=== PATIENT | female | born 1995 | race Caucasian/White ===

== ENCOUNTER 2016-09-28 10:54 | Emergency (ER) | payer BC ==
[2016-09-28 11:20] VITALS: BP 132/76
--- NOTE | 2016-09-28 11:46 | UC ---
Throat Pain/Nasal Chaz HPI - HPI Summary HPI Summary: 20 y/o female presents to the urgent care c/o sore throat and cough for the past 5 days. She states she is now having more pain when she swallows. Pain is 5/10 and with a productive cough producing a green phlegm. Pt has been taking Mucinex to alleviate symptoms of cough. But wants to make sure she doesn' t have strep. Pt denies fever, SOB, chest pain, N/V/D/ GUERRA, or rash. - History of Current Complaint Chief Complaint: UCRespiratory Stated Complaint: THROAT PAIN Time Seen by Provider: 09/28/16 11:45 Hx Obtained From: Patient Hx Last Menstrual Period: 09/14/16 ?: No Onset/Duration: Gradual Onset, Lasting Days, Still Present Severity: Moderate Pain Intensity: 5 Pain Scale Used: 0-10 Numeric Cough: Productive - green pleg Associated Signs & Symptoms: Positive: Dysphagia. Negative: Sinus Discomfort, Nasal Discharge, Fever, Vomiting, Rash - Epiglottits Risk Factors Epiglottis Risk Factors: Negative - Allergies/Home Medications Allergies/Adverse Reactions: Allergies Allergy/AdvReac Type Severity Reaction Status Date / Time No Known Allergies Allergy Verified 09/28/16 11:20 PMH/Surg Hx/FS Hx/Imm Hx Previously Healthy: Yes - Surgical History Surgical History: None Surgery Procedure, Year, and Place: HERNIA REPAIR AGE 8 - Family History Known Family History: Positive: Cardiac Disease - Social History Occupation: Student Lives: With Family Alcohol Use: Rare Substance Use Type: None Smoking Status (MU): Never Smoked Tobacco Review of Systems Constitutional: Negative Skin: Negative Eyes: Negative ENT: Sore Throat Respiratory: Cough Cardiovascular: Negative Gastrointestinal: Negative Genitourinary: Negative Motor: Negative Neurovascular: Negative Musculoskeletal: Negative Neurological: Negative Psychological: Negative All Other Systems Reviewed And Are Negative: Yes Physical Exam Triage Information Reviewed: Yes Appearance: Well-Appearing, No Pain Distress, Well-Nourished, Obese Vital Signs: Initial Vital Signs Temp 97.1 F 09/28/16 11:18 Pulse 55 09/28/16 11:18 Resp 16 09/28/16 11:18 BP 132/76 09/28/16 11:18 Pulse Ox 100 09/28/16 11:18 Vital Signs Reviewed: Yes Eye Exam: Normal Eyes: Positive: Conjunctiva Clear - PERRLA, EOMI, fundi grossly normal ENT Exam: Normal ENT: Positive: Normal ENT inspection, Hearing grossly normal, Pharyngeal erythema - b/l exudate, TMs normal, Tonsillar swelling, Tonsillar exudate Dental Exam: Normal Neck exam: Normal Neck: Positive: Supple, Nontender, No Lymphadenopathy Respiratory Exam: Normal Respiratory: Positive: Chest non-tender, Lungs clear, Normal breath sounds Cardiovascular Exam: Normal Cardiovascular: Positive: RRR, No Murmur, Pulses Normal Abdominal Exam: Normal Abdomen Description: Positive: Nontender, No Organomegaly, Soft. Negative: CVA Tenderness (R), CVA Tenderness (L) Bowel Sounds: Positive: Present Musculoskeletal Exam: Normal Neurological Exam: Normal Psychological: Positive: Normal Response To Family Skin Exam: Normal Throat Pain/Nasal Course/Dx - Course Course Of Treatment: 20 y/o female presents to the urgent care c/o sore throat and cough for the past 5 days. She states she is now having more pain when she swallows. Pain is 5/10 and with a productive cough producing a green phlegm. Pt has been taking Mucinex to alleviate symptoms of cough. But wants to make sure she doesn't have strep. Pt denies fever, SOB, chest pain, N/V/D/ GUERRA, or rash.HX obtained. PE abnormal findings: ENT: Positive: Normal ENT inspection, Hearing grossly normal, Pharyngeal erythema - b/l exudate, TMs normal, Tonsillar swelling, Tonsillar exudate. Rapid strep ordered. Result: positive. Strep pharyngitis. Pt Rx Amoxicillin PO and Ibuprofen. Advised hand washing and if symptoms do not improve or worsen to f/u with PCP or return to the urgent care for further management. Pt understood and agreed. - Differential Dx/Diagnosis Differential Diagnosis/HQI/PQRI: Laryngitis, Mononucleosis, Peritonsillar Abscess, Pharyngitis, Tonsillitis, URI Provider Diagnoses: 1- Strep pharyngitis Discharge - Discharge Plan Condition: Stable Disposition: HOME Prescriptions: Amoxicillin PO (*) [Amoxicillin 875 MG (*)] 875 mg PO BID #20 tab Ibuprofen TAB* [Motrin TAB* 800 MG] 800 mg PO Q6H #20 tab Patient Education Materials: Strep Throat (ED) Referrals: [facility] [facility] [place] [facility] [Outside] - If Needed No Primary Care Phys,NOPCP [Primary Care Provider] - Additional Instructions: Please take full course of antibiotic as directed to avoid recurrence or resistance. Please take ibuprofen after meals to alleviate pain and swelling. If symptoms do not improve or worsen please return to the urgent care or f/u with your PCP for further evaluation and treatment.
== END 2016-09-28 12:18 | disposition home or self-care (01) ==
LOC: UCEAST 10:54
DX: J02.0 Streptococcal pharyngitis (principal)
CPT/HCPCS: 87651; 99202; G0463